=== PATIENT | male | born 1995 ===

== ENCOUNTER 2020-12-17 18:25 | Emergency (ER) | payer SELFPAY | END 2020-12-18 06:59 | disposition left against medical advice (07) | LOC: ED 18:25 | DX: S61.411A Laceration without foreign body of right hand, initial encounter (principal); Z53.21 Procedure and treatment not carried out due to patient leaving prior to being seen by health care provider; X58.XXXA Exposure to other specified factors, initial encounter; Y93.89 Activity, other specified; Y92.488 Other paved roadways as the place of occurrence of the external cause; Y99.8 Other external cause status ==